=== PATIENT | female | born 1965 | race Caucasian/White ===

== ENCOUNTER 2021-10-17 12:43 | Emergency (ER) | payer SELFPAY ==
[2021-10-17 13:01] VITALS: BP 173/93; PULSE 88
== END 2021-10-17 13:41 | disposition home or self-care (01) ==
LOC: DL.ED 12:43
DX: T81.40XA Infection following a procedure, unspecified, initial encounter (principal); N61.0 Mastitis without abscess; Z88.1 Allergy status to other antibiotic agents; Z79.899 Other long term (current) drug therapy
CPT/HCPCS: 36415; 85025; 86140; 87070; 99283